=== PATIENT | male | born 1950 ===

== ENCOUNTER 2018-12-29 09:34 | Outpatient (CLI) | payer MEDICARE | END 2018-12-29 09:35 | disposition home or self-care (01) | LOC: C.PAT 09:34 | DX: K42.9 Umbilical hernia without obstruction or gangrene (principal); M62.08 Separation of muscle (nontraumatic), other site ==

== ENCOUNTER 2019-01-14 07:02 | Day surgery (SDC) | payer MEDICARE ==
[2019-01-14 11:26] VITALS: BMI 25.5
[2019-01-14 11:54] LABS: HEMOGLOBIN 13.7 g/dL (12.0-18.0); MEAN CORPUSCULAR HEMOGLOBIN 38.7 pg (27.0-31.0); MEAN CORPUSCULAR HGB CONC 34.9 g/dL (33.0-37.0); MEAN PLATELET VOLUME 8.8 fL (7.2-11.7); RBC 3.54 Mil/uL (4.40-5.90); RED CELL DISTRIBUTION WIDTH 13.5 % (11.5-14.5); WHITE BLOOD COUNT 4.2 K/uL (4.8-10.8)
[2019-01-14] MEDS ORDERED: Bupivacaine Liposomal Inj 20 ml INJ ONE (12:03)
[2019-01-14] MEDS ORDERED: Bupivacaine 0.25% 20 ML INJ IJ ONE (12:12)
[2019-01-14] MEDS ORDERED: Sodium Chloride 0.9% 40 ML IV ONE (12:12)
[2019-01-14] MEDS ORDERED: ceFAZolin 1 gm in NS 2 GM/200 ML BAG IVPB ONE (12:13)
[2019-01-14] MEDS ORDERED: Lidocaine/Epinephrine 1% 1:100000 10 ML IJ ONE (12:13)
[2019-01-14] MEDS ORDERED: Midazolam 2 MG/2 ML VIAL ONE (12:22)
[2019-01-14] MEDS ORDERED: Propofol 10 mg/ml Inj (20 ML) ONE (12:22)
[2019-01-14] MEDS ORDERED: Esmolol 100 mg/10ml Inj IV ONE (13:32)
[2019-01-14] MEDS ORDERED: Morphine 4 MG/ML VIAL ONE (14:46)
--- NOTE | 2019-01-14 14:48 | PCM.SURG1 ---
Surgeon's Initial Post Op Note - Surgeon's Notes Surgeon: David Roland MD City Marshal: Meka Henning, PGY-2; Madelyn RASCON Type of Anesthesia: General Endo Anesthesia Administered By: MAINOR Hickman Pre-Operative Diagnosis: Umbilical hernia & Diastasis recti Operative Findings: Umbilical hernia & Diastasis recti Post-Operative Diagnosis: Umbilical hernia & Diastasis recti Operation Performed: Robotic Umbilical hernia repair with mesh & Diastasis recti repair Specimen/Specimens Removed: Preperitoneal adipose tissue Estimated Blood Loss: EBL {In ML}: 10 Blood Products Given: N/A Drains Used: No Drains Post-Op Condition: Good Date of Surgery/Procedure: 01/14/19 Time of Surgery/Procedure: 14:55
[2019-01-14] MEDS ORDERED: HYDROmorphone 0.5 mg/0.5 ml ISec IVP PRN (14:57)
[2019-01-14] MEDS ORDERED: Lactated Ringer's 500 ML IV ONE (16:00)
[2019-01-14 16:42] VITALS: BP 158/91; PULSE 100; RESP 18; TEMP 98; O2SAT 93
--- NOTE | 2019-01-15 10:10 | OP ---
PROCEDURE DATE: 01/14/2019 PREOPERATIVE DIAGNOSES: 1. Umbilical hernia. 2. Diastasis of the rectus muscle. 3. Thrombocytopenia status post platelet transfusion. POSTOPERATIVE DIAGNOSES: 1. Umbilical hernia. 2. Diastasis of the rectus muscle. 3. Thrombocytopenia status post platelet transfusion. 4. Cirrhosis. 5. Ascites. PROCEDURES DONE: 1. Robotic umbilical hernia repaired with the mesh. 2. Robotic diastasis of rectus repaired with the mesh. 3. Laparoscopic aspiration of the ascites. 4. Laparoscopic bilateral TAP block placement. SURGEON: David Roland MD ASSISTANTS: MARIAM Weber and Meka Henning DO, PGY-2, resident TYPE OF ANESTHESIA: General endotracheal tube anesthesia. ESTIMATED BLOOD LOSS: Around 10 mL. DRAINS: None. PATHOLOGY: Preperitoneal fat was sent to the Pathology. INTRAOPERATIVE FINDINGS: The patient had approximately 2 x 2 cm umbilical hernia and the patient had approximately 8 x 4 cm diastasis of the rectus muscle. This is a 68-year-old male who was diagnosed with umbilical hernia and diastasis of the rectus muscles and the patient was consented for the robotic umbilical hernia repair with the mesh with diastasis of the rectus repair. The patient had thrombocytopenia and preoperatively, platelet transfusion was done. DESCRIPTION OF PROCEDURE: On intraoperative steps, the patient was brought to the OR, placed supine on the operating table. After induction of the anesthesia, the abdomen was prepped and draped in the usual sterile fashion. Left upper quadrant incision was made using the Visiport technique. Peritoneal cavity was entered. Pneumo was created. Two 8 mm port was placed and robot was brought in. Camera arm as well as arm 1 and arm 2 was docked. First umbilical hernial content was reduced and the preperitoneal fat was marked and it was excised. Now, the umbilical hernial defect was closed with #1 Prolene V-Loc suture. After that, the diastasis of the rectus muscle was also repaired in a two layer with #1 Prolene V-Loc suture in a continuous fashion. After proper repair, a 12 x 8 cm mesh was introduced and mesh was secured using the stitches. After proper implantation of the mesh, the bilateral TAP block was given. Next procedure is laparoscopic bilateral TAP block placement. After proper TAP block, all the instrument was taken out. All the ports were taken out under vision. Pneumo was deflated. All the port sites were closed in two layer. The fascia with a 0 Vicryl interrupted suture, skin with a 4-0 Monocryl, and dry sterile dressing was placed. The patient tolerated the procedure well. Count of instrument and gauze was correct. There were no apparent complications. David Roland MD
== END 2019-01-14 18:15 | disposition home or self-care (01) ==
LOC: C.SDS 07:02
PROVIDERS: ATTEND Surgery Surgical Critical Care
DX: K42.9 Umbilical hernia without obstruction or gangrene (principal); M62.08 Separation of muscle (nontraumatic), other site; D69.6 Thrombocytopenia, unspecified; K74.60 Unspecified cirrhosis of liver; R18.8 Other ascites
CPT/HCPCS: 22999; 36415; 49082; 49652; 82948; 85027; 88305; J0690; J2250; J2270; J2405; J2704; J2765; J3010; J7120